=== PATIENT | female | born 1950 | race Hispanic/Latino ===

== ENCOUNTER 2019-02-28 04:46 | Observation (INO) | payer OTHER ==
--- OUTSIDE RECORDS SUMMARY | 2019-02-28 04:57 | XMS REPORT ---
:1950 [facility] Address [address] [place] [address] Care Team Providers Name Role Phone Unavailable Unavailable Unavailable Payers Payer Name Policy Type Policy Number Effective Date Expiration Date Problems This patient has no known problems. Allergies, Adverse Reactions, Alerts Allergy Allergy Status Severity Reaction(s) Onset Inactive Treating Comments Name Type Date Date Clinician No Known DA Active U 2018-11 Allergies -15 00:00:0 0 No Known DA Active U 2018-11 Allergies -05 00:00:0 0 Medications This patient has no known medications. Results Test Description Test Time Test Comments Text Results Atomic Results Result Comments GLUCOSE BEDSIDE TESTING 2018-11-30 08:08:00 Test Item Value Reference Range Comments GLUCOSE BEDSIDE TESTING (test code=GLUBED) 96 MG/DL 60-99 BASIC METABOLIC [id number] 04:53:00 Test Item Value Reference Range Comments SODIUM (test code=NA) 126 MMOL/L 137-145 POTASSIUM (test code=K) 4.0 MMOL/L 3.5-5.1 CHLORIDE (test code=CL) 92 MMOL/L 98-107 CARBON DIOXIDE (test code=CO2) 23 MMOL/L 22-30 GLUCOSE (test code=GLU) 109 MG/DL 74-106 BLOOD UREA NITROGEN (test 13 MG/DL 7-17 code=BUN) GLOMERULAR FILTRATION RATE > 60 Reporting units: ml/min/1.73 (test code=GFR) m2 (Modified MDRD Formula)Reference Range: > or=60 ml/min/1.73 m2 CREATININE (test code=CREAT) 0.60 MG/DL 0.52-1.04 CALCIUM (test code=CA) 8.3 MG/DL 8.4-10.2 GLUCOSE BEDSIDE [id number] 00:48:00 Test Item Value Reference Range Comments GLUCOSE BEDSIDE TESTING (test code=GLUBED) 96 MG/DL 60-99 BASIC METABOLIC [id number] 22:08:00 Test Item Value Reference Range Comments SODIUM (test code=NA) 126 MMOL/L 137-145 POTASSIUM (test code=K) 4.1 MMOL/L 3.5-5.1 CHLORIDE (test code=CL) 88 MMOL/L 98-107 CARBON DIOXIDE (test code=CO2) 26 MMOL/L 22-30 GLUCOSE (test code=GLU) 99 MG/DL 74-106 BLOOD UREA NITROGEN (test 13 MG/DL 7-17 code=BUN) GLOMERULAR FILTRATION RATE > 60 Reporting units: ml/min/1.73 (test code=GFR) m2 (Modified MDRD Formula)Reference Range: > or=60 ml/min/1.73 m2 CREATININE (test code=CREAT) 0.60 MG/DL 0.52-1.04 CALCIUM (test code=CA) 8.7 MG/DL 8.4-10.2 GLUCOSE BEDSIDE [id number] 20:58:00 Test Item Value Reference Range Comments GLUCOSE BEDSIDE TESTING (test code=GLUBED) 85 MG/DL 60-99 BASIC METABOLIC [id number] 15:26:00 Test Item Value Reference Range Comments SODIUM (test code=NA) 126 MMOL/L 137-145 POTASSIUM (test code=K) 4.6 MMOL/L 3.5-5.1 CHLORIDE (test code=CL) 87 MMOL/L 98-107 CARBON DIOXIDE (test code=CO2) 27 MMOL/L 22-30 ANION GAP (test code=GAP) 17 MMOL/L 14-24 GLUCOSE (test code=GLU) 95 MG/DL 74-106 BLOOD UREA NITROGEN (test 12 MG/DL 7-17 code=BUN) GLOMERULAR FILTRATION RATE > 60 Reporting units: ml/min/1.73 (test code=GFR) m2 (Modified MDRD Formula)Reference Range: > or=60 ml/min/1.73 m2 CREATININE (test code=CREAT) 0.70 MG/DL 0.52-1.04 CALCIUM (test code=CA) 9.1 MG/DL 8.4-10.2 Specimen comments: peripheral stickBASIC METABOLIC [id number] 12:56:00 Test Item Value Reference Range Comments SODIUM (test code=NA) 125 MMOL/L 137-145 POTASSIUM (test code=K) 4.2 MMOL/L 3.5-5.1 CHLORIDE (test code=CL) 87 MMOL/L 98-107 CARBON DIOXIDE (test code=CO2) 25 MMOL/L 22-30 GLUCOSE (test code=GLU) 96 MG/DL 74-106 BLOOD UREA NITROGEN (test 12 MG/DL 7-17 code=BUN) GLOMERULAR FILTRATION RATE > 60 Reporting units: ml/min/1.73 (test code=GFR) m2 (Modified MDRD Formula)Reference Range: > or=60 ml/min/1.73 m2 CREATININE (test code=CREAT) 0.70 MG/DL 0.52-1.04 CALCIUM (test code=CA) 8.7 MG/DL 8.4-10.2 CBC W/AUTO [id number] 12:33:00 Test Item Value Reference Range Comments WHITE BLOOD CELL (test code=WBC) 10.4 K/MM3 3.8-9.8 RED BLOOD CELL (test code=RBC) 3.31 M/MM3 3.58-4.97 HEMOGLOBIN (test code=HGB) 9.6 G/DL 11.2-14.9 HEMATOCRIT (test code=HCT) 28.2 % 33.2-43.5 MEAN CELL VOLUME (test code=MCV) 85 fL 80.7-99.1 MEAN CELL HGB (test code=MCH) 29.0 pg 27.0-34.1 MEAN CELL HGB CONCETRATION (test code=MCHC) 34.0 % 32.2-35.7 RED CELL DISTRIBUTION WIDTH (test code=RDW) 14.0 % 12.1-15.2 PLATELET COUNT (test code=PLT) 267 K/MM3 129-368 MEAN PLATELET VOLUME (test code=MPV) 10.9 fl 7.4-10.4 NEUTROPHIL % (test code=NT%) 74.4 % 43-75 IMMATURE GRANULOCYTE % (test code=IG%) 0.4 % 0.0-2.0 LYMPHOCYTE % (test code=LY%) 12.4 % 14-44 MONOCYTE % (test code=MO%) 10.9 % 4-13 EOSINOPHIL % (test code=EO%) 1.3 % 0-6 BASOPHIL % (test code=BA%) 0.6 % 0-2 NUCLEATED RBC % (test code=NRBC%) 0.0 % 0-1.0 NEUTROPHIL # (test code=NT#) 7.76 K/mm3 2.0-7.6 IMMATURE GRANULOCYTE # (test code=IG#) 0.04 x10 3/uL 0-0.03 LYMPHOCYTE # (test code=LY#) 1.29 K/mm3 1.0-3.8 MONOCYTE # (test code=MO#) 1.14 K/mm3 0.1-0.8 EOSINOPHIL # (test code=EO#) 0.14 K/mm3 0.0-0.2 BASOPHIL # (test code=BA#) 0.06 K/mm3 0.0-0.2 NUCLEATED RBC # (test code=NRBC#) 0.00 K/mm3 0.0-0.1 GLUCOSE BEDSIDE [id number] 08:18:00 Test Item Value Reference Range Comments GLUCOSE BEDSIDE TESTING (test code=GLUBED) 62 MG/DL 60-99 GLYCOSYLATED HEMOGLOBIN [id number] 07:54:00 Test Item Value Reference Range Comments GLYCOSYLATED HEMOGLOBIN 5.6 % 4.8-5.9 Any condition that shortens (HA1C) (test code=GLYHGB) erythocyte survival or decreasesmean erythrocyte age (e.g., recovery from acute blood loss,hemolytic anemia) will falsely lower HGBA1c resultsregardless of the method used. HGBA1c results from patientswith HbSS, HbCC, and HbSc must be interpreted with cautiongiven the pathological processes, including anemia,increased red cell turnover, transfusion requirements, thatadversely impact HGBA1c as a marker of long-term glycemiccontrol. Alternative forms of testing such as fructosamineshould be considered for these patients. MEAN BLOOD GLUCOSE (test 114 MG/DL 70-110 code=MBG) GLUCOSE BEDSIDE [id number] 20:15:00 Test Item Value Reference Range Comments GLUCOSE BEDSIDE TESTING (test code=GLUBED) 85 MG/DL 60-99 GLUCOSE BEDSIDE [id number] 17:07:00 Test Item Value Reference Range Comments GLUCOSE BEDSIDE TESTING (test code=GLUBED) 90 MG/DL 60-99 ARTERY,[id number] 10:10:00 RUN DATE: 11/28/18 [facility] [place] RUN TIME: 1010 Specimen Inquiry RUN USER: INTERFACE PATIENT: ENRIQUE DUMONT LOC: AJ U #: [id number] AGE/SX: 68/F ROOM: [facility] RE11/27/18[facility] DR: Storm Freeman MD : 48 BED: A DIS: STATUS: ADM IN TLOC: SPEC #: [id number]:PICHARDO:[id number] RECD: 11/27/18 STATUS: CAS SPARKS #: [id number] VARGHESE: 11/27/[address]: Storm Freeman MD ENTERED: 11/27/18 SP TYPE: ARTERY, PL OTHR DR: Christen Childs MD, Gregory S MDORDERED: DECAL, SURG PATH LVL 3, SURG PATH LVL 4 CODES: T44784 - PLAQUE, NOS M78674 - ARTERY, NOS P07302 [id number] - CAROTID ARTERY ATHEROSCLEROSIS [id number] [id number] - CERVIX EXCISIONAL BIOP RE6876 - LYMPH NODE, NOS COPIES TO:[place] [address] [place] [address] [place] [address] [facility] [address] [place] [address] [place] [address] [facility] [address] [place], [place] [address] ICD CODES: 440 - PROCEDURES: DECAL (11/27/18) SURG PATH LVL 3 (11/27/18) SURG PATH LVL 4 (11/27/18) TISSUES: A. ARTERY, NOS - RT CAROTID PLAQUE B. LYMPH NODE, NOS - RT CERVICAL LYMPH NODE CLINICAL HISTORY RIGHT INTERNAL CAROTID STENOSIS CONTINUED ON NEXT PAGE RUN DATE: 11/28/18 [facility] [place] RUN TIME: 1010 Specimen Inquiry RUN USER: INTERFACE SPEC #: [id number]: PICHARDO:[id number] PATIENT: ENRIQUE DUMONT #[id number] (Continued) - CPT CODES CPT CODE(S): 77739 , 45244 , 40365 , , , , FINAL DIAGNOSIS A. Plaque, right carotid artery, endarterectomy: OCCLUSIVE AND CALCIFIC ATHEROSCLEROSIS. B. Lymph node, right cervical, excisional biopsy: MILD TO MODERATE, NON-SPECIFIC, REACTIVE CHANGE. GROSS DESCRIPTION A. Right carotid plaque. Received is a Y-shaped segment of plaque (3.5 x 1 x 1 cm). Cut sections reveal a calcified surface. Sections are submitted for brief decalcification as A1. B. Right cervical lymph node. Received is a single red-pink lymph node (2.3 x 1.6 x 1 cm), serially sectionedand submitted as B1. /tc/federico MICROSCOPIC DESCRIPTION A. Right carotid plaque. Ovoid sclerotic nodule with partial recanalization and focal dystrophic calcification. No atypia. No malignancy. B. Right cervical lymph node. Benign lymphoid tissue with mild to moderate follicular hyperplasia and sinus histiocytosis. No atypia. No malignancy. /cm - Signed SIGNATURE ON FILE Ramses Teixeira 11/28/18 1010 - END OF REPORT - XR CHEST [id number] 07:38:00 Patient Name: ENRIQUE DUMONT Unit No: [id number] EXAMS: CPT CODE: [id number] XR CHEST 1V 75571 R16 EXAM: - XR CHEST 1V HISTORY: post op COMPARISON: 11/27/2018 FINDINGS: Right internal jugular catheter and left subclavian central line again noted. The lungs are clear. No pleural effusion or pneumothorax. The cardiac silhouette is within normal limits. No acute osseous abnormalities. IMPRESSION: No acute cardiopulmonary disease. at 0738 Reported and signed by: Holden Trujillo MD CC: Technologist: RT Noel(R) Transcrpt Date/Tm/Trnsp: 11/28/2018 (0738) [email or web address] Orig Print D/T: S: 11/28/2018 (0741) [facility] NAME: ENRIQUE DUMONT [address] PHYS : [place] [address] : 07/1950 AGE: 68 SEX: F LOC : Z.SI04 A PHONE #: [phone] EXAM DATE: 11/28/2018 STATUS: ADM IN FAX #: [phone] RADIOLOGY NO: PAGE 1 Signed ReportBASIC METABOLIC [id number] 04:37:00 Test Item Value Reference Range Comments SODIUM (test code=NA) 132 MMOL/L 137-145 POTASSIUM (test code=K) 4.4 MMOL/L 3.5-5.1 CHLORIDE (test code=CL) 100 MMOL/L 98-107 CARBON DIOXIDE (test code=CO2) 24 MMOL/L 22-30 ANION GAP (test code=GAP) 12 MMOL/L 14-24 GLUCOSE (test code=GLU) 163 MG/DL 74-106 BLOOD UREA NITROGEN (test 10 MG/DL 7-17 code=BUN) GLOMERULAR FILTRATION RATE > 60 Reporting units: ml/min/1.73 (test code=GFR) m2 (Modified MDRD Formula)Reference Range: > or=60 ml/min/1.73 m2 CREATININE (test code=CREAT) 0.50 MG/DL 0.52-1.04 CALCIUM (test code=CA) 8.3 MG/DL 8.4-10.2 [id number] 04:37:00 Test Item Value Reference Range Comments MAGNESIUM (test code=MAG) 1.7 MG/DL 1.6-2.3 CBC W/AUTO [id number] 04:23:00 Test Item Value Reference Range Comments WHITE BLOOD CELL (test code=WBC) 9.4 K/MM3 3.8-9.8 RED BLOOD CELL (test code=RBC) 3.15 M/MM3 3.58-4.97 HEMOGLOBIN (test code=HGB) 9.3 G/DL 11.2-14.9 HEMATOCRIT (test code=HCT) 27.7 % 33.2-43.5 MEAN CELL VOLUME (test code=MCV) 88 fL 80.7-99.1 MEAN CELL HGB (test code=MCH) 29.5 pg 27.0-34.1 MEAN CELL HGB CONCETRATION (test code=MCHC) 33.6 % 32.2-35.7 RED CELL DISTRIBUTION WIDTH (test code=RDW) 14.5 % 12.1-15.2 PLATELET COUNT (test code=PLT) 217 K/MM3 129-368 MEAN PLATELET VOLUME (test code=MPV) 11.1 fl 7.4-10.4 NEUTROPHIL % (test code=NT%) 83.2 % 43-75 IMMATURE GRANULOCYTE % (test code=IG%) 0.3 % 0.0-2.0 LYMPHOCYTE % (test code=LY%) 9.1 % 14-44 MONOCYTE % (test code=MO%) 7.2 % 4-13 EOSINOPHIL % (test code=EO%) 0.0 % 0-6 BASOPHIL % (test code=BA%) 0.2 % 0-2 NUCLEATED RBC % (test code=NRBC%) 0.0 % 0-1.0 NEUTROPHIL # (test code=NT#) 7.85 K/mm3 2.0-7.6 IMMATURE GRANULOCYTE # (test code=IG#) 0.03 x10 3/uL 0-0.03 LYMPHOCYTE # (test code=LY#) 0.86 K/mm3 1.0-3.8 MONOCYTE # (test code=MO#) 0.68 K/mm3 0.1-0.8 EOSINOPHIL # (test code=EO#) 0.00 K/mm3 0.0-0.2 BASOPHIL # (test code=BA#) 0.02 K/mm3 0.0-0.2 NUCLEATED RBC # (test code=NRBC#) 0.00 K/mm3 0.0-0.1 ARTERIAL BLOOD [id number] 12:43:00 Test Item Value Reference Range Comments ARTERIAL BLOOD GAS PH (test 7.36 mmHg 7.35-7.45 code=PHA) ARTERIAL BLOOD GAS PCO2 (test 41.8 mmHg 35.0-45.0 code=PCO2A) ARTERIAL BLOOD GAS PO2 (test 142.2 mmol/L 80.0-100.0 code=PO2A) BICARBONATE TOTAL HCO3 (test 23.2 mmol/L 20.0-26.0 code=HCO3) BASE EXCESS (test code=MIGEL) -2.1 mmol/L -3.0-3.0 ABG O2 SATURATION (test 98.7 % 95.0-100.0 All critical values report code=SATA) to and readback by KAITLYNN CORREA by LEONARD.OS at 11/27/2018 12:06:14 PM ABG L/M (test code=L/M) 5 L/MIN ABG DELIVERY (test code=KHRIS) SMASK ABG TEMPERATURE (test 37.0 C >37 code=TEMPA) ABG SITE (test code=SITEA) AL ALLENS TEST (test code=ALLENS) NA CHECK FIO2 (test code=COHBGFFIO2) 40 % - XR CHEST [id number] 12:33:00 Patient Name: ENRIQUE DUMONT Unit No: [id number] EXAMS: CPT CODE: [id number] XR CHEST 1V 12741 EXAMINATION: - XR CHEST 1V. LOCATION: B2. HISTORY: post op. COMPARISON: Radiograph of same day at 0655 hours. TECHNIQUE:Single AP view of the chest was obtained. FINDINGS: Surgical drain is seen in the right neck. Left subclavian line tip is at the cavoatrial junction. The heartis within the upper limits of normal in size. Calcifications are seen at the aortic arch. Right upper lobe and mild bibasilar opacities are present. No acute osseous abnormality isidentified. IMPRESSION: Right upper lobe and mild bibasilar opacities, likely representing atelectasis. at 1233 Reported and signed by: Tito Garcia MD CC: Technologist: [employer] ; Virgilio Williamson, RT(R) Transcrpt Date/Tm/Trnsp : 11/27/2018 (1233) [email or web address] Orig Print D/T: S: 11/27/2018 ( 1236) [facility] NAME: ENRIQUE DUMONT [address] PHYS: [place] [address] : 1950 AGE : 68 SEX: F LOC : Z.SI04 A PHONE #: [phone] EXAM DATE: 11/27/2018 STATUS : ADM IN FAX #: [phone] RADIOLOGY NO: PAGE 1 Signed ReportBASIC METABOLIC [id number] 12:26:00 Test Item Value Reference Range Comments SODIUM (test code=NA) 139 MMOL/L 137-145 POTASSIUM (test code=K) 3.8 MMOL/L 3.5-5.1 CHLORIDE (test code=CL) 107 MMOL/L 98-107 CARBON DIOXIDE (test code=CO2) 25 MMOL/L 22-30 ANION GAP (test code=GAP) 11 MMOL/L 14-24 GLUCOSE (test code=GLU) 115 MG/DL 74-106 BLOOD UREA NITROGEN (test 12 MG/DL 7-17 code=BUN) GLOMERULAR FILTRATION RATE > 60 Reporting units: ml/min/1.73 (test code=GFR) m2 (Modified MDRD Formula)Reference Range: > or=60 ml/min/1.73 m2 CREATININE (test code=CREAT) 0.60 MG/DL 0.52-1.04 CALCIUM (test code=CA) 8.0 MG/DL 8.4-10.2 [id number] 12:26:00 Test Item Value Reference Range Comments MAGNESIUM (test code=MAG) 1.7 MG/DL 1.6-2.3 CBC W/AUTO [id number] 12:17:00 Test Item Value Reference Range Comments WHITE BLOOD CELL (test code=WBC) 7.8 K/MM3 3.8-9.8 RED BLOOD CELL (test code=RBC) 3.27 M/MM3 3.58-4.97 HEMOGLOBIN (test code=HGB) 9.6 G/DL 11.2-14.9 HEMATOCRIT (test code=HCT) 28.9 % 33.2-43.5 MEAN CELL VOLUME (test code=MCV) 88 fL 80.7-99.1 MEAN CELL HGB (test code=MCH) 29.4 pg 27.0-34.1 MEAN CELL HGB CONCETRATION (test code=MCHC) 33.2 % 32.2-35.7 RED CELL DISTRIBUTION WIDTH (test code=RDW) 14.5 % 12.1-15.2 PLATELET COUNT (test code=PLT) 220 K/MM3 129-368 MEAN PLATELET VOLUME (test code=MPV) 11.2 fl 7.4-10.4 NEUTROPHIL % (test code=NT%) 74.0 % 43-75 IMMATURE GRANULOCYTE % (test code=IG%) 0.4 % 0.0-2.0 LYMPHOCYTE % (test code=LY%) 13.5 % 14-44 MONOCYTE % (test code=MO%) 6.4 % 4-13 EOSINOPHIL % (test code=EO%) 5.1 % 0-6 BASOPHIL % (test code=BA%) 0.6 % 0-2 NUCLEATED RBC % (test code=NRBC%) 0.0 % 0-1.0 NEUTROPHIL # (test code=NT#) 5.79 K/mm3 2.0-7.6 IMMATURE GRANULOCYTE # (test code=IG#) 0.03 x10 3/uL 0-0.03 LYMPHOCYTE # (test code=LY#) 1.06 K/mm3 1.0-3.8 MONOCYTE # (test code=MO#) 0.50 K/mm3 0.1-0.8 EOSINOPHIL # (test code=EO#) 0.40 K/mm3 0.0-0.2 BASOPHIL # (test code=BA#) 0.05 K/mm3 0.0-0.2 NUCLEATED RBC # (test code=NRBC#) 0.00 K/mm3 0.0-0.1 HIV 12 AB [id number] 08:06:00 Test Item Value Reference Range Comments AB HIV 1 2 (test NON REACTIVE NON-REAC NOTE: A NONREACTIVE RESULT code=RSI45DF) INDICATES THAT HIV-1 AND HIV-2ANTIBODIES HAVE NOT BEEN FOUND IN THIS PATIENT SPECIMEN. ANON-REACTIVE RESULT, HOWEVER, DOES NOT PRECLUDE PREVIOUSEXPOSURE OR INFECTION WITH HIV1. AG HIV1 P24 (test NON REACTIVE NONE REAC code=DIG3B29) PROTHROMBIN [id number] 08:01:00 Test Item Value Reference Range Comments PROTHROMBIN TIME PATIENT (test 11.7 SECONDS 9.6-11.6 code=PTP) INTERNATIONAL NORMAL RATIO 1.1 0.8-1.1 The INR is to be used only (test code=INR) for monitoring oral anticoagulanttherapy. INDICATION INR VALUE 1. Prophylaxis, deep venous thrombosis, including high risk surgery. 2.0 - 3.0 2. Prophylaxis, deep venous thrombosis, hip surgery, treatment for deep venous thrombosis or pulmonary prevention of systemic embolism in patients with valvular heart disease, atrial fibrillation, tissue heart valve, or acute myocardial infarction. 2.0 - 3.0 3. Mechanical prosthesis heart valves, recurrent systemic embolism. 3.0 - 4.5 PTT [id number] 08:01:00 Test Item Value Reference Range Comments PTT ACTIVATED (test code=APTT) 32.8 SECONDS 22.0-33.0 BASIC METABOLIC [id number] 07:56:00 Test Item Value Reference Range Comments SODIUM (test code=NA) 139 MMOL/L 137-145 POTASSIUM (test code=K) 4.6 MMOL/L 3.5-5.1 CHLORIDE (test code=CL) 104 MMOL/L 98-107 CARBON DIOXIDE (test code=CO2) 25 MMOL/L 22-30 GLUCOSE (test code=GLU) 97 MG/DL 74-106 BLOOD UREA NITROGEN (test 15 MG/DL 7-17 code=BUN) GLOMERULAR FILTRATION RATE > 60 Reporting units: ml/min/1.73 (test code=GFR) m2 (Modified MDRD Formula)Reference Range: > or=60 ml/min/1.73 m2 CREATININE (test code=CREAT) 0.80 MG/DL 0.52-1.04 CALCIUM (test code=CA) 8.9 MG/DL 8.4-10.2 CBC W/AUTO [id number] 07:45:00 Test Item Value Reference Range Comments WHITE BLOOD CELL (test code=WBC) 9.4 K/MM3 3.8-9.8 RED BLOOD CELL (test code=RBC) 3.83 M/MM3 3.58-4.97 HEMOGLOBIN (test code=HGB) 11.0 G/DL 11.2-14.9 HEMATOCRIT (test code=HCT) 34.0 % 33.2-43.5 MEAN CELL VOLUME (test code=MCV) 89 fL 80.7-99.1 MEAN CELL HGB (test code=MCH) 28.7 pg 27.0-34.1 MEAN CELL HGB CONCETRATION (test code=MCHC) 32.4 % 32.2-35.7 RED CELL DISTRIBUTION WIDTH (test code=RDW) 14.5 % 12.1-15.2 PLATELET COUNT (test code=PLT) 260 K/MM3 129-368 MEAN PLATELET VOLUME (test code=MPV) 11.2 fl 7.4-10.4 NEUTROPHIL % (test code=NT%) 68.2 % 43-75 IMMATURE GRANULOCYTE % (test code=IG%) 0.2 % 0.0-2.0 LYMPHOCYTE % (test code=LY%) 15.6 % 14-44 MONOCYTE % (test code=MO%) 9.9 % 4-13 EOSINOPHIL % (test code=EO%) 5.5 % 0-6 BASOPHIL % (test code=BA%) 0.6 % 0-2 NUCLEATED RBC % (test code=NRBC%) 0.0 % 0-1.0 NEUTROPHIL # (test code=NT#) 6.43 K/mm3 2.0-7.6 IMMATURE GRANULOCYTE # (test code=IG#) 0.02 x10 3/uL 0-0.03 LYMPHOCYTE # (test code=LY#) 1.47 K/mm3 1.0-3.8 MONOCYTE # (test code=MO#) 0.93 K/mm3 0.1-0.8 EOSINOPHIL # (test code=EO#) 0.52 K/mm3 0.0-0.2 BASOPHIL # (test code=BA#) 0.06 K/mm3 0.0-0.2 NUCLEATED RBC # (test code=NRBC#) 0.00 K/mm3 0.0-0.1 - XR CHEST [id number] 07:29:00 Patient Name: ENRIQUE DUMONT Unit No: [id number] EXAMS: CPT CODE: [id number] XR CHEST 1V 37459 EXAM: - XR CHEST 1V HISTORY: Preoperative exam Location code:C3 COMPARISON: None available time of interpretation. FINDINGS: Single AP view of the chest is provided. Heart size and vascularity are within normal limits. The lungs are clear of focal consolidation. No effusion, pneumothorax,or acute osseous abnormality. IMPRESSION: 1. No radiographic evidence of acute cardiopulmonary process. at 0729 Reportedand signed by: Ramses Pineda MD CC: Technologist: Lashaun Sherwood (RT); [employer] [facility] Transcrpt Date/Tm/Trnsp:11/27/2018 (07) [id number] Orig Print D /T: S: 11/27/2018 (0732) [facility] NAME: ENRIQUE DUMONT [address] PHYS: [place] [address] : 1950 AGE : 68 SEX: F LOC : Z.LDU PHONE #: [phone] EXAM DATE: 11/27/2018 STATUS: PRE IN FAX #: [phone] RADIOLOGY NO: PAGE 1 Signed ReportBASIC METABOLIC [id number] 06:55:00 Test Item Value Reference Range Comments SODIUM (test code=NA) 140 MMOL/L 137-145 POTASSIUM (test code=K) 4.3 MMOL/L 3.5-5.1 CHLORIDE (test code=CL) 109 MMOL/L 98-107 CARBON DIOXIDE (test code=CO2) 23 MMOL/L 22-30 GLUCOSE (test code=GLU) 112 MG/DL 74-106 BLOOD UREA NITROGEN (test 14 MG/DL 7-17 code=BUN) GLOMERULAR FILTRATION RATE > 60 Reporting units: ml/min/1.73 (test code=GFR) m2 (Modified MDRD Formula)Reference Range: > or=60 ml/min/1.73 m2 CREATININE (test code=CREAT) 0.70 MG/DL 0.52-1.04 CALCIUM (test code=CA) 8.3 MG/DL 8.4-10.2 CBC W/AUTO [id number] 06:44:00 Test Item Value Reference Range Comments WHITE BLOOD CELL (test code=WBC) 6.4 K/MM3 3.8-9.8 RED BLOOD CELL (test code=RBC) 3.79 M/MM3 3.58-4.97 HEMOGLOBIN (test code=HGB) 10.9 G/DL 11.2-14.9 HEMATOCRIT (test code=HCT) 34.1 % 33.2-43.5 MEAN CELL VOLUME (test code=MCV) 90 fL 80.7-99.1 MEAN CELL HGB (test code=MCH) 28.8 pg 27.0-34.1 MEAN CELL HGB CONCETRATION (test code=MCHC) 32.0 % 32.2-35.7 RED CELL DISTRIBUTION WIDTH (test code=RDW) 14.5 % 12.1-15.2 PLATELET COUNT (test code=PLT) 228 K/MM3 129-368 MEAN PLATELET VOLUME (test code=MPV) 11.1 fl 7.4-10.4 NEUTROPHIL % (test code=NT%) 68.2 % 43-75 IMMATURE GRANULOCYTE % (test code=IG%) 0.3 % 0.0-2.0 LYMPHOCYTE % (test code=LY%) 17.0 % 14-44 MONOCYTE % (test code=MO%) 9.9 % 4-13 EOSINOPHIL % (test code=EO%) 3.8 % 0-6 BASOPHIL % (test code=BA%) 0.8 % 0-2 NUCLEATED RBC % (test code=NRBC%) 0.0 % 0-1.0 NEUTROPHIL # (test code=NT#) 4.33 K/mm3 2.0-7.6 IMMATURE GRANULOCYTE # (test code=IG#) 0.02 x10 3/uL 0-0.03 LYMPHOCYTE # (test code=LY#) 1.08 K/mm3 1.0-3.8 MONOCYTE # (test code=MO#) 0.63 K/mm3 0.1-0.8 EOSINOPHIL # (test code=EO#) 0.24 K/mm3 0.0-0.2 BASOPHIL # (test code=BA#) 0.05 K/mm3 0.0-0.2 NUCLEATED RBC # (test code=NRBC#) 0.00 K/mm3 0.0-0.1 [id number] 08:43:00 Test Item Value Reference Range Comments ACT-ISTAT (test code=ACTI) 279 SEC 74-137 BASIC METABOLIC [id number] 06:07:00 Test Item Value Reference Range Comments SODIUM (test code=NA) 141 MMOL/L 137-145 POTASSIUM (test code=K) 4.3 MMOL/L 3.5-5.1 CHLORIDE (test code=CL) 104 MMOL/L 98-107 CARBON DIOXIDE (test code=CO2) 27 MMOL/L 22-30 GLUCOSE (test code=GLU) 100 MG/DL 74-106 BLOOD UREA NITROGEN (test 15 MG/DL 7-17 code=BUN) GLOMERULAR FILTRATION RATE > 60 Reporting units: ml/min/1.73 (test code=GFR) m2 (Modified MDRD Formula)Reference Range: > or=60 ml/min/1.73 m2 CREATININE (test code=CREAT) 0.70 MG/DL 0.52-1.04 CALCIUM (test code=CA) 9.3 MG/DL 8.4-10.2 LIPID PROFILE (CORONARY RISK)2018-11-17 06:07:00 Test Item Value Reference Range Comments TRIGLYCERIDES (test code=TRIG) 115 MG/DL TRIGLYCERIDES REFERENCE RANGE:Normal: <150 mg/dLBorderline High: 150-199 mg/dLHigh: 200-499 mg/dLVery High: >=500 mg/dL CHOLESTEROL (test code=CHOL) 98 MG/DL <200 HDL CHOLESTEROL (test 27 MG/DL 40-59 code=HDL) LIPOPROTEIN LDL (test 48 MG/DL 0-99 code=LDL) OPTIMAL.........<100 mg/dLNEAR OPTIMAL/ABOVE OPTIMAL.........100-129 mg/dL BORDERLINE HIGH.........130-159 mg/dL HIGH.........160-189 mg/dL VERY HIGH.........>/=190 mg/dL [id number] 06:07:00 Test Item Value Reference Range Comments MAGNESIUM (test code=MAG) 2.1 MG/DL 1.6-2.3 PROTHROMBIN [id number] 05:59:00 Test Item Value Reference Range Comments PROTHROMBIN TIME PATIENT (test 11.2 SECONDS 9.6-11.6 code=PTP) INTERNATIONAL NORMAL RATIO 1.1 0.8-1.1 The INR is to be used only (test code=INR) for monitoring oral anticoagulanttherapy. INDICATION INR VALUE 1. Prophylaxis, deep venous thrombosis, including high risk surgery. 2.0 - 3.0 2. Prophylaxis, deep venous thrombosis, hip surgery, treatment for deep venous thrombosis or pulmonary prevention of systemic embolism in patients with valvular heart disease, atrial fibrillation, tissue heart valve, or acute myocardial infarction. 2.0 - 3.0 3. Mechanical prosthesis heart valves, recurrent systemic embolism. 3.0 - 4.5 Comments to Computational Physicist: WILL BRING TO LABPTT [id number] 05:59:00 Test Item Value Reference Range Comments PTT ACTIVATED (test code=APTT) 30.8 SECONDS 22.0-33.0 Comments to Computational Physicist: WILL BRING TO LABBASIC METABOLIC [id number] 05:56 :00 Test Item Value Reference Range Comments SODIUM (test code=NA) 141 MMOL/L 137-145 POTASSIUM (test code=K) 4.3 MMOL/L 3.5-5.1 CHLORIDE (test code=CL) 104 MMOL/L 98-107 CARBON DIOXIDE (test code=CO2) 27 MMOL/L 22-30 GLUCOSE (test code=GLU) 100 MG/DL 74-106 BLOOD UREA NITROGEN (test 15 MG/DL 7-17 code=BUN) GLOMERULAR FILTRATION RATE > 60 Reporting units: ml/min/1.73 (test code=GFR) m2 (Modified MDRD Formula)Reference Range: > or=60 ml/min/1.73 m2 CREATININE (test code=CREAT) 0.70 MG/DL 0.52-1.04 CALCIUM (test code=CA) 9.3 MG/DL 8.4-10.2 LIPID PROFILE (CORONARY RISK)2018-11-17 05:56:00 Test Item Value Reference Range Comments TRIGLYCERIDES (test code=TRIG) 115 MG/DL TRIGLYCERIDES REFERENCE RANGE:Normal: <150 mg/dLBorderline High: 150-199 mg/dLHigh: 200-499 mg/dLVery High: >=500 mg/dL CHOLESTEROL (test code=CHOL) 98 MG/DL <200 HDL CHOLESTEROL (test 27 MG/DL 40-59 code=HDL) LIPOPROTEIN LDL (test MG/DL 0-99 code=LDL) [id number] 05:56:00 Test Item Value Reference Range Comments MAGNESIUM (test code=MAG) 2.1 MG/DL 1.6-2.3 CBC W/AUTO [id number] 05:43:00 Test Item Value Reference Range Comments WHITE BLOOD CELL (test code=WBC) 8.1 K/MM3 3.8-9.8 RED BLOOD CELL (test code=RBC) 4.28 M/MM3 3.58-4.97 HEMOGLOBIN (test code=HGB) 12.4 G/DL 11.2-14.9 HEMATOCRIT (test code=HCT) 38.5 % 33.2-43.5 MEAN CELL VOLUME (test code=MCV) 90 fL 80.7-99.1 MEAN CELL HGB (test code=MCH) 29.0 pg 27.0-34.1 MEAN CELL HGB CONCETRATION (test code=MCHC) 32.2 % 32.2-35.7 RED CELL DISTRIBUTION WIDTH (test code=RDW) 14.5 % 12.1-15.2 PLATELET COUNT (test code=PLT) 274 K/MM3 129-368 MEAN PLATELET VOLUME (test code=MPV) 11.0 fl 7.4-10.4 NEUTROPHIL % (test code=NT%) 66.1 % 43-75 IMMATURE GRANULOCYTE % (test code=IG%) 0.2 % 0.0-2.0 LYMPHOCYTE % (test code=LY%) 19.4 % 14-44 MONOCYTE % (test code=MO%) 10.2 % 4-13 EOSINOPHIL % (test code=EO%) 3.4 % 0-6 BASOPHIL % (test code=BA%) 0.7 % 0-2 NUCLEATED RBC % (test code=NRBC%) 0.0 % 0-1.0 NEUTROPHIL # (test code=NT#) 5.36 K/mm3 2.0-7.6 IMMATURE GRANULOCYTE # (test code=IG#) 0.02 x10 3/uL 0-0.03 LYMPHOCYTE # (test code=LY#) 1.58 K/mm3 1.0-3.8 MONOCYTE # (test code=MO#) 0.83 K/mm3 0.1-0.8 EOSINOPHIL # (test code=EO#) 0.28 K/mm3 0.0-0.2 BASOPHIL # (test code=BA#) 0.06 K/mm3 0.0-0.2 NUCLEATED RBC # (test code=NRBC#) 0.00 K/mm3 0.0-0.1
[2019-02-28 05:13] LABS: Absolute Lymphocytes (CBC) 1.6 K/uL (0.7-4.9); Basophils % 0.9 % (0-1.3); Eosinophils % 3.5 % (0-4.4); Hematocrit 31.2 % (36.0-45.0); Lymphocytes % 24.7 % (15.3-44.8); MPV 9.7 fL (7.6-11.3); Monocytes % 9.1 % (3.3-12.3); RBC Red Blood Cell Count 3.79 M/uL (3.86-4.86)
[2019-02-28 05:14] LABS: Protime INR 1.11
[2019-02-28 05:31] LABS: ALT/SGPT 24 U/L (12-78); AST/SGOT 23 U/L (15-37); Albumin 3.8 g/dL (3.4-5.0); Alkaline Phosphatase 159 U/L (45-117); BUN Blood Urea Nitrogen 32 mg/dL (7-18); Bicarbonate 27 mmol/L (21-32); Bilirubin Direct 0.1 mg/dL (0-0.2); Bilirubin Total 0.4 mg/dL (0.2-1.0); Glucose Level 113 mg/dL (74-106); Magnesium 2.7 mg/dL (1.8-2.4); NT PRO-BNP 40 pg/mL (<125); Potassium 3.9 mmol/L (3.5-5.1); Protein, Total 7.5 g/dL (6.4-8.2); Sodium Level 142 mmol/L (136-145); Troponin (Emerg Dept Use Only) < 0.02 ng/mL (0.0-0.045)
[2019-02-28] MEDS ORDERED: NA CHLORIDE 0.9% 1,000 ML ONE (05:51)
--- NOTE | 2019-02-28 06:02 | ER ---
Nurse's Notes [facility] Name: Alejandrina Jason Age: 68 yrs Sex: Female : 1950 Arrival Date: 02/28/2019 Time: 04:56 Bed 8 Private MD: Diagnosis: Recurrent syncopal episodes Presentation: 02/28 04:30 Presenting complaint: Co workers reported pt had 3 syncopal episodes, they reported ea episodes were one after another, deny pt hitting head on floor. Transition of care: patient was not received from another setting of care. Onset of symptoms was February 28, 2019. Risk Assessment: Do you want to hurt yourself or someone else? Patient reports no desire to harm self or others. Initial Sepsis Screen: Does the patient meet any 2 criteria? No. Patient's initial sepsis screen is negative. Does the patient have a suspected source of infection? No. Patient's initial sepsis screen is negative. Care prior to arrival: None. 04:30 Method Of Arrival: Wheelchair ea 04:30 Acuity: DON 3 ea Triage Assessment: 04:30 General: Appears uncomfortable, Behavior is drowsy. Pain: Denies pain. Neuro: Level of ea Consciousness is obeys commands, Drowsy. Oriented to person, place, Art Instructor are equal bilaterally Moves all extremities. Speech is normal, Facial symmetry appears normal, Reports a syncopal episode. Cardiovascular: Patient's skin is warm and dry. Respiratory: Airway is patent Respiratory effort is even, unlabored, Respiratory pattern is regular, symmetrical. Derm: Skin is clammy, Skin is pale, Skin temperature is warm. Historical: - Allergies: 05:13 No Known Allergies; ea - Home Meds: 05:13 "blood thinner" [Active]; "high blood pressure medication" [Active]; ea - PMHx: 05:13 Hypertension; ea - PSHx: 05:13 "stents"; ea - Immunization history:: Adult Immunizations up to date. - Social history:: Smoking status: Patient/guardian denies using tobacco. - Ebola Screening: : No symptoms or risks identified at this time. Screenin:06 Abuse screen: Denies threats or abuse. Nutritional screening: No deficits noted. ea Tuberculosis screening: No symptoms or risk factors identified. Fall Risk IV access (20 points). Assessment: 05:11 Neuro: Level of Consciousness is awake, Oriented to person, place, situation. ea Cardiovascular: Rhythm is sinus rhythm. Respiratory: Airway is patent Respiratory effort is even, unlabored, Respiratory pattern is regular, symmetrical. Derm: Skin is clammy, Skin is pale, Skin temperature is warm. 05:51 Reassessment: Patient and/or family updated on plan of care and expected duration. Pain ea level reassessed. Patient is alert, oriented x 3, equal unlabored respirations, skin warm/dry/pink. Returned from CT. Pt is more awake, able to answer questions appropriately. 06:29 Reassessment: Patient and/or family updated on plan of care and expected duration. Pain ea level reassessed. Patient is alert, oriented x 3, equal unlabored respirations, skin warm/dry/pink. 07:10 General: Appears comfortable. Pain: Denies pain. Neuro: Level of Consciousness is aa5 awake, alert, obeys commands, Oriented to person, place, time, situation, Art Instructor are equal bilaterally Moves all extremities. Speech is normal, Facial symmetry appears normal, Pupils are PERRLA. Cardiovascular: Heart tones S1 S2 present Rhythm is regular. Respiratory: Airway is patent Respiratory effort is even, unlabored, Respiratory pattern is regular, symmetrical, Breath sounds are clear bilaterally. GI: No signs and/or symptoms were reported involving the gastrointestinal system. : No signs and/or symptoms were reported regarding the genitourinary system. EENT: No signs and/or symptoms were reported regarding the EENT system. Derm: Skin is pink, warm \\T\\ dry. Musculoskeletal: Range of motion: intact in all extremities. 07:12 Reassessment: Awaiting room assignment, pt notified of wait time. Lights dimmed for aa5 comfort, pt now resting with eyes closed. . 08:30 Reassessment: Patient is alert, oriented x 3, equal unlabored respirations, skin aa5 warm/dry/pink. Vital Signs: 04:32 BP 135 / 53; Pulse 64; Resp 19; Temp 97.6; Pulse Ox 95% on R/A; Weight 61.23 kg; Height ea 4 ft. 11 in. (149.86 cm); Pain 0/10; 05:00 BP 147 / 61; Pulse 74; Resp 18; Pulse Ox 97% on R/A; ea 06:03 BP 120 / 47; Pulse 81; Resp 18; Pulse Ox 100% on R/A; ea 07:10 BP 123 / 55; Pulse 66; Resp 18; Pulse Ox 100% on R/A; ea 07:10 Temp 97.7(O); Pain 0/10; aa5 08:30 BP 100 / 76; Pulse 63; Resp 16 S; Pulse Ox 97% on R/A; Pain 0/10; aa5 04:32 Body Mass Index 27.27 (61.23 kg, 149.86 cm) ea ED Course: 04:30 Bed in low position. Call light in reach. Side rails up X2. mortgage processing manager on. Pulse ea ox on. NIBP on. 04:30 Patient placed in an exam room, on a stretcher, on maintenance shop laborer, on pulse oximetry. ea 04:55 Inserted saline lock: 20 gauge in right antecubital area, using aseptic technique. ea Blood collected. 04:56 Patient arrived in ED. am2 04:59 Max Marion MD is Attending Physician. pkl 05:02 Carmelita Graham RN is Primary Nurse. ea 05:05 Arm band placed on right wrist. ea 05:08 Triage completed. ea 05:41 CT completed. Patient tolerated procedure well. Patient moved to CT via stretcher. Patient moved back from CT. 05:44 X-ray completed. Portable x-ray completed in exam room. Patient tolerated procedure kw well. 05:46 XRAY Chest (1 view) In Process Unspecified. EDMS 05:46 CT Head Brain wo Cont In Process Unspecified. EDMS 06:00 Cedric Mejia MD is Hospitalizing Provider. pkl 06:25 No provider procedures requiring assistance completed. Patient admitted, IV remains in ea place. 07:05 Report received from KAITLYNN Mae. aa5 Administered Medications: 05:45 Drug: NS 0.9% 1000 ml Route: IV; Rate: 125 ml/hr; Site: right antecubital; ea 06:25 Follow up: Response: No adverse reaction; IV Status: Infusion continued upon transfer ea Point of Care Testing: Blood Glucose: 04:40 Blood Glucose: 88 mg/dL; ea Ranges: Outcome: 06:01 Decision to Hospitalize by Provider. pkl 06:25 Instructed on the need for admit. ea 08:34 Admitted to Tele accompanied by tech, via stretcher, with chart, Report called to mary Stapleton RN. Pt taken to MRI at this time with tech. Pt will be taken to Room 424 after MRI, KAITLYNN Stapleton was notified. 08:34 Condition: stable 08:34 Instructed on the need for admit, Demonstrated understanding of instructions. aa5 08:35 Patient left the ED. iw Signatures: Dispatcher [employer] EDMS Max Marion MD MD pkl Hagler, Ervin eh Williams, Irene, RN RN iw Calderon, Audri, RN RN aa5 Whitley, Kimberlee kw Moreno, Amanda am2 Antunez, Elena, RN RN ea Corrections: (The following items were deleted from the chart) 08:41 08:34 Admitted to Tele accompanied by tech, via stretcher, with chart, Report called to mary Stapleton RN. Pt taken to MRI at this time with tech. Pt will be taken to Room 424 after MRI. aa5
--- NOTE | 2019-02-28 06:02 | EDPHYS ---
Physician Documentation [facility] Name: Alejandrina Jason Age: 68 yrs Sex: Female : 1950 Arrival Date: 02/28/2019 Time: 04:56 Bed 8 Private MD: ED Physician Max Marion HPI: 02/28 05:02 This 68 yrs old Female presents to ER via Unassigned with complaints of pkl Syncope. 05:02 The patient has experienced near-syncope, almost passed out. Onset: The pkl symptoms/episode began/occurred just prior to arrival, Patient had recurrent episodes and had to be assisted by co-workers. Associated signs and symptoms: Pertinent positives: diaphoresis, headache. Historical: - Allergies: 05:13 No Known Allergies; ea - Home Meds: 05:13 "blood thinner" [Active]; "high blood pressure medication" [Active]; ea - PMHx: 05:13 Hypertension; ea - PSHx: 05:13 "stents"; ea - Immunization history:: Adult Immunizations up to date. - Social history:: Smoking status: Patient/guardian denies using tobacco. - Ebola Screening: : No symptoms or risks identified at this time. ROS: 05:02 Eyes: Negative for injury, pain, redness, and discharge, ENT: Negative for injury, pkl pain, and discharge, Neck: Negative for injury, pain, and swelling, Cardiovascular: Negative for chest pain, palpitations, and edema, Respiratory: Negative for shortness of breath, cough, wheezing, and pleuritic chest pain, Abdomen/GI: Negative for abdominal pain, nausea, vomiting, diarrhea, and constipation, Back: Negative for injury and pain, : Negative for injury, bleeding, discharge, and swelling, MS/Extremity: Negative for injury and deformity, Skin: Negative for injury, rash, and discoloration. 05:02 Neuro: Positive for headache, near syncope. Exam: 05:02 Abdomen/GI: Exam negative for acute changes. pkl 05:02 Head/Face: Normocephalic, atraumatic. Eyes: Pupils equal round and reactive to light, extra-ocular motions intact. Lids and lashes normal. Conjunctiva and sclera are non-icteric and not injected. Cornea within normal limits. Periorbital areas with no swelling, redness, or edema. ENT: Nares patent. No nasal discharge, no septal abnormalities noted. Tympanic membranes are normal and external auditory canals are clear. Oropharynx with no redness, swelling, or masses, exudates, or evidence of obstruction, uvula midline. Mucous membranes moist. Neck: Trachea midline, no thyromegaly or masses palpated, and no cervical lymphadenopathy. Supple, full range of motion without nuchal rigidity, or vertebral point tenderness. No Meningismus. Chest/axilla: Normal chest wall appearance and motion. Nontender with no deformity. No lesions are appreciated. Cardiovascular: Regular rate and rhythm with a normal S1 and S2. No gallops, murmurs, or rubs. Normal PMI, no JVD. No pulse deficits. Respiratory: Lungs have equal breath sounds bilaterally, clear to auscultation and percussion. No rales, rhonchi or wheezes noted. No increased work of breathing, no retractions or nasal flaring. Abdomen/GI: Soft, non-tender, with normal bowel sounds. No distension or tympany. No guarding or rebound. No evidence of tenderness throughout. Back: No spinal tenderness. No costovertebral tenderness. Full range of motion. 05:02 Skin: Appearance: diaphoresis is noted. 05:02 Neuro: Orientation: appropriate for stated age, Mentation: is normal, Cranial nerves: grossly normal, Cerebellar function: normal finger to nose testing, heel to bolden testing is normal, Motor: is normal. Vital Signs: 04:32 BP 135 / 53; Pulse 64; Resp 19; Temp 97.6; Pulse Ox 95% on R/A; Weight 61.23 kg; Height ea 4 ft. 11 in. (149.86 cm); Pain 0/10; 05:00 BP 147 / 61; Pulse 74; Resp 18; Pulse Ox 97% on R/A; ea 06:03 BP 120 / 47; Pulse 81; Resp 18; Pulse Ox 100% on R/A; ea 07:10 BP 123 / 55; Pulse 66; Resp 18; Pulse Ox 100% on R/A; ea 07:10 Temp 97.7(O); Pain 0/10; aa5 08:30 BP 100 / 76; Pulse 63; Resp 16 S; Pulse Ox 97% on R/A; Pain 0/10; aa5 04:32 Body Mass Index 27.27 (61.23 kg, 149.86 cm) ea MDM: 04:59 Patient medically screened. pkl 05:49 Data reviewed: vital signs, nurses notes, lab test result(s), EKG, radiologic studies, pkl CT scan, plain films. 05:58 Data reviewed: vital signs, nurses notes, lab test result(s), EKG, radiologic studies, pkl CT scan, plain films. ED course: Talked to Dr. Mejia for observation. 02/28 05:01 Order name: Basic Metabolic Panel pkl 02/28 05:01 Order name: CBC with Diff pkl 02/28 05:01 Order name: LFT's pkl 02/28 05:01 Order name: Magnesium; Complete Time: 05:48 pkl 02/28 05:01 Order name: NT PRO-BNP; Complete Time: 05:48 pkl 02/28 05:01 Order name: PT-INR; Complete Time: 05:48 pkl 02/28 05:01 Order name: Troponin (emerg Dept Use Only); Complete Time: 05:48 pkl 02/28 05:01 Order name: XRAY Chest (1 view) pkl 02/28 05:01 Order name: Basic Metabolic Panel; Complete Time: 05:48 EDMS 02/28 05:02 Order name: CBC with Automated Diff; Complete Time: 05:48 EDMS 02/28 05:02 Order name: Liver (Hepatic) Function; Complete Time: 05:48 EDMS 02/28 07:27 Order name: Lipid Profile EDMS 02/28 07:27 Order name: Troponin I EDDC 02/28 07:27 Order name: Troponin I EDDC 02/28 05:01 Order name: EKG; Complete Time: 05:02 pkl 02/28 05:01 Order name: Cardiac monitoring; Complete Time: 05:10 pkl 02/28 05:01 Order name: EKG - Nurse/Tech; Complete Time: 05:10 pkl 02/28 05:01 Order name: IV Saline Lock; Complete Time: 05:10 pkl 02/28 05:01 Order name: Labs collected and sent; Complete Time: 05:10 pkl 02/28 05:01 Order name: O2 Per Protocol; Complete Time: 05:10 pkl 02/28 05:01 Order name: O2 Sat Monitoring; Complete Time: 05:10 pkl 02/28 05:01 Order name: CT Head Brain wo Cont pkl 02/28 07:27 Order name: Heart Healthy EDMS 02/28 07:27 Order name: Echo with Doppler EDMS 02/28 07:28 Order name: Carotid Artery Bilateral EDMS 02/28 07:53 Order name: MRA Head Wo Cont EDMS 02/28 07:55 Order name: Brain W/Wo Cont EDMS 02/28 07:55 Order name: MRA Neck W/Wo Cont EDMS Administered Medications: 05:45 Drug: NS 0.9% 1000 ml Route: IV; Rate: 125 ml/hr; Site: right antecubital; ea 06:25 Follow up: Response: No adverse reaction; IV Status: Infusion continued upon transfer ea Point of Care Testing: Blood Glucose: 04:40 Blood Glucose: 88 mg/dL; ea Ranges: Critical Glucose Levels:Adult <50 mg/dl or >400 mg/dl <40 mg/dl or >180 mg/dl Disposition: 02/28/19 06:01 Hospitalization ordered by Cedric Mejia for Observation. Preliminary diagnosis is Recurrent syncopal episodes. - Bed requested for Telemetry/MedSurg (observation). - Status is Observation. iw - Condition is Stable. - Problem is new. - Symptoms have improved. UTI on Admission? No Signatures: Dispatcher [employer] [facility] Max Marion MD MD pkl Williams, Irene RN RN Carmelita Lucas RN RN Marie Salmon Corrections: (The following items were deleted from the chart) 06:38 06:01 Hospitalization Ordered by Cedric Mejia MD for Observation. Preliminary eb diagnosis is Recurrent syncopal episodes. Bed requested for Telemetry/MedSurg (observation). Status is Observation. Condition is Stable. Problem is new. Symptoms have improved. UTI on Admission? No. pkl 07:48 06:38 02/28/2019 06:01 Hospitalization Ordered by Cedric Mejia MD for Observation. eb Preliminary diagnosis is Recurrent syncopal episodes. Bed requested for Telemetry/MedSurg (observation). Status is Observation. Condition is Stable. Problem is new. Symptoms have improved. UTI on Admission? No. eb 07:53 07:28 Stroke Protocol ordered. [facility] 08:35 07:48 02/28/2019 06:01 Hospitalization Ordered by Cedric Mejia MD for Observation. iw Preliminary diagnosis is Recurrent syncopal episodes. Bed requested for Telemetry/MedSurg (observation). Status is Observation. Condition is Stable. Problem is new. Symptoms have improved. UTI on Admission? No. eb
[2019-02-28] MEDS ORDERED: ALPRAZOLAM 0.25 MG TABLET PO PRN (07:19)
[2019-02-28] MEDS ORDERED: ACETAMINOPHEN 500 MG TAB PO PRN (07:19)
[2019-02-28] MEDS ORDERED: MORPHINE 4 MG/ML SYR IV PRN (07:19)
--- NOTE | 2019-02-28 07:21 | EKG ---
Test Date: 2019-02-28 Test Time: 04:52:22 Surg Tech: RAGINI MEASUREMENT RESULTS: Intervals: Rate: 71 TN: 158 QRSD: 70 QT: 416 QTc: 452 [place]: P: 7 TN: 158 QRS: 90 T: -20 INTERPRETIVE STATEMENTS: Normal sinus rhythm Rightward axis Abnormal QRS-T angle, consider primary T wave abnormality Abnormal ECG No previous ECG available for comparison Electronically Signed On 02-28-19 07:20:31 CDT by Saravanan Stallings
--- NOTE | 2019-02-28 07:39 | P.HP ---
Certification for Inpatient Patient admitted to: Observation With expected LOS: <2 Midnights Patient will require the following post-hospital care: None Practitioner: I am a practitioner with admitting privileges, knowledge of patient current condition, hospital course, and medical plan of care. 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 She has history of carotid endarterectomy and coronary artery disease. She was on her lunch break when she suddenly got lightheaded. She does not remember anything after that except being in the emergency room. She has had a prior carotid endarterectomy for a right-sided carotid artery that was 95% stenosed. She denies any chest pain. She denies any paresthesias or weakness. She will be admitted to the hospital for further evaluation under observation status. She is at a high risk for arrhythmia as, CVA, and with a new bruit on the left carotid artery my concern is that she may have significant stenosis on the left side as well. Home medications list reviewed: Yes - Past Medical/Surgical History -: Coronary artery disease -: Carotid artery atherosclerosis -: Carotid endarterectomy -: Cardiac catheterization with stent placed - Family History Father Family History: Reviewed- Non-Contributory - Social History Smoking Status: Never smoker Alcohol use: No CD- Drugs: No Review of Systems 10-point ROS is otherwise unremarkable Physical Examination - Vital Signs Temperature: 98 F Blood Pressure: 140/70 Pulse: 88 Respirations: 18 Pulse Ox (%): 96 - Physical Exam General: Alert, In no apparent distress, Oriented x3 HEENT: Atraumatic, PERRLA, Mucous membr. moist/pink, EOMI, Sclerae nonicteric Neck: Supple, 2+ carotid pulse no bruit, No LAD, Bruit Respiratory: Clear to auscultation bilaterally, Normal air movement Cardiovascular: Regular rate/rhythm, Normal S1 S2, No murmurs Gastrointestinal: Normal bowel sounds, Soft and benign, Non-distended, No tenderness Musculoskeletal: No clubbing, No swelling, No tenderness Integumentary: No rashes Neurological: Normal gait, Normal speech, Normal strength at 5/5 x4 extr, Normal tone, Sensation intact, Cranial nerves 3-12 intact, Normal affect Lymphatics: No axilla or inguinal lymphadenopathy - Studies Laboratory Data (last 24 hrs) 02/28/19 04:55: PT 13.0 H, INR 1.11 02/28/19 04:55: WBC 6.6, Hgb 10.1 L, Hct 31.2 L, Plt Count 318 02/28/19 04:55: Sodium 142, Potassium 3.9, BUN 32 H, Creatinine 1.04, Glucose 113 H, Magnesium 2.7 H, Total Bilirubin 0.4, AST 23, ALT 24, Alkaline Phosphatase 159 H Assessment & Plan - Problems (Diagnosis) (1) Syncope Current Visit: Yes Status: Acute (2) History of carotid artery disease Current Visit: Yes Status: Acute (3) History of carotid endarterectomy Current Visit: Yes Status: Acute (4) History of coronary artery disease Current Visit: Yes Status: Acute - Plan Plan: 1. Monitor on telemetry for arrhythmias 2. Echocardiogram and carotid Doppler 3. Patient with left-sided carotid bruit; pending carotid Doppler 4. MRI it was stroke protocol 5. Lipid profile and continue with anti-platelet therapy and statin therapy 6. Cardiology consultation 7. GI and DVT prophylaxis Discharge Plan: Home Plan to discharge in: 48 Hours - Advance Directives Does patient have a Living Will: No Does patient have a Durable POA for Healthcare: No - Code Status/Comfort Care Code Status Assessed: Yes Code Status: Full Code Critical Care: No Time Spent Managing PTS Care (In Minutes): 45
--- NOTE | 2019-02-28 08:18 | RAD REPORT ---
EXAM DESCRIPTION: RAD - Chest Single View - 02/28/2019 5:48 am CLINICAL HISTORY: syncopal episodes Chest pain. COMPARISON: C Spine W Obliques dated 01/31/2018 FINDINGS: Portable technique limits examination quality. Small area of nodularity is seen in the right upper lobe. The lungs are otherwise clear. The heart is upper limit of normal in size. No displaced fractures. IMPRESSION: Small area of nodularity is seen in the right upper lobe. Given the lack comparative [address] radiographs, CT chest would be recommended for followup assessment.
--- NOTE | 2019-02-28 08:56 | RAD REPORT ---
EXAM DESCRIPTION: US - CP - 02/28/2019 8:36 am CLINICAL HISTORY: Syncope Headache, hypertension, drowsiness COMPARISON: No comparisons TECHNIQUE: Real-time sonographic evaluation of both carotid systems was performed. Doppler interroga tion was performed with waveform tracing bilaterally. FINDINGS: Normal high resistance waveforms are noted in both external carotid arteries. The common c arotid arteries and internal carotid arteries show normal low resistance waveforms. Mild hard plaquing is seen in both carotid bulbs. Peak systolic and end diastolic velocity values and the ICA/CCA ratios are in the non-hemodynamically significant range. Antegrade flow seen in the left vertebral artery. The right vertebral artery was not well seen. IMPRESSION: Mild hard plaque both carotid bulbs. No evidence of a hemodynamically significant stenosis.
[2019-02-28] MEDS ORDERED: ASPIRIN EC 81 MG TAB PO SCH (09:00)
[2019-02-28] MEDS ORDERED: ENOXAPARIN 40 MG/0.4 ML SQ SCH ×2 (09:00→17:00)
[2019-02-28] MEDS ORDERED: METOPROLOL TAR 25 MG TAB PO SCH (09:00)
[2019-02-28 10:18] VITALS: BP 153/69
--- NOTE | 2019-02-28 10:29 | RAD REPORT ---
EXAM DESCRIPTION: MRI - Brain W/Wo Cont - 02/28/2019 10:00 am CLINICAL HISTORY: Syncope COMPARISON: February 28, [address] TECHNIQUE: Axial, sagittal, and coronal magnetic images of the brain were obtained. 13 cc MultiHance administered intravenously FINDINGS: Mild signal within periventricular, deep and subcortical white matter may indicate ischemi c changes secondary to small vessel disease. . The ventricles are normal in caliber. Diffusion-weighted/ ADC mapping sequences do not demonstrate evidence of an acute infarction. No abnormal enhancement within the brain is seen. An extra-axial fluid collection is not noted. A right posterior scalp lipoma suspected Fluid within the sinuses/mastoids is not seen IMPRESSION: No acute abnormality is displayed
[2019-02-28 10:33] VITALS: O2SAT 99; BMI 27.2
--- NOTE | 2019-02-28 10:36 | RAD REPORT ---
EXAM DESCRIPTION: MRI - MRA Neck W/Wo Cont - 02/28/2019 10:00 am CLINICAL HISTORY: Syncope COMPARISON: None. TECHNIQUE: Magnetic resonance angiogram of the neck was performed. Thirteen cc MultiHance was admini stered intravenously. 3D MIPS reconstruction performed FINDINGS: There appears to be an approximately 50- 55% stenosis involving the proximal left vertebr al artery. Little flow is seen within the right vertebral artery. Mild plaque is present within the common and internal carotid arteries bilaterally. Moderate plaque is seen within the left external carotid artery. IMPRESSION: Moderate stenosis of the proximal left vertebral artery Little flow within the right vertebral artery. I suspect this is secondary to it being hypoplastic. H owever, a chronic occlusion/dissection can also result in this appearance Mild stenosis internal carotid arteries NASCET criteria used. Mild 0-49% stenosis Moderate 50-69% stenosis Severe 70-99% stenosis
--- NOTE | 2019-02-28 10:42 | RAD REPORT ---
EXAM DESCRIPTION: MRI - MRA Head Wo Cont - 02/28/2019 10:00 am CLINICAL HISTORY: Syncope COMPARISON: None. TECHNIQUE: Magnetic resonance angiogram was performed. 3D MIPS reconstruction performed FINDINGS: Narrowing of the M2 segment left middle cerebral artery Hypoplastic A1 segment right anterior cerebral artery Mild narrowing involving portions of the left anterior cerebral and right posterior cerebral artery i s likely chronic. Remainder of exam unremarkable IMPRESSION: Moderate narrowing M2 segment left middle cerebral artery. Given that no significant abn ormality is seen on the MRI brain on the same date this is more likely to be chronic than acute. This should be correlated clinically
--- NOTE | 2019-02-28 10:57 | RAD REPORT ---
EXAM DESCRIPTION: CT Head Without Intravenous Contrast CLINICAL HISTORY: The patient is 68 years old and is Female; syncopal episodes TECHNIQUE: Axial computed tomography images of the head/brain without intravenous contrast. Sagitt al and coronal reformatted images were created and reviewed. This CT exam was performed using one o r more of the following dose reduction techniques: automated exposure control, adjustment of the mA and/or kV according to patient size, and/or use of iterative reconstruction technique. COMPARISON: No relevant prior studies available. FINDINGS: BRAIN: Bilateral basal ganglia calcifications are present. The kaplan-white matter differe ntiation is preserved . No hemorrhage. No significant white matter disease. No edema. No extra-ax ial fluid collections. VENTRICLES: Unremarkable. No ventriculomegaly. BONES/JOINTS: No acute fracture. SOFT TISSUES: Unremarkable. SINUSES: Unremarkable as visualized. No acute sinusitis. MASTOID AIR CELLS: Unremarkable as visualized. No mastoid effusion. IMPRESSION: No acute intracranial findings. Electronically signed by: Emily Jordan MD 02/28/2019 6:12 AM CDT Due to temporary technical issues with the PACS/Fluency reporting system, reports are being signed by the in house radiologist as a courtesy to ensure prompt reporting. The interpreting radiologist is f ully responsible for the content of the report.
[2019-02-28 12:01] VITALS: TEMP 97
--- NOTE | 2019-02-28 14:33 | ECHO ---
HEIGHT: 4 ft 11 in WEIGHT: 135 lb 0 oz DATE OF STUDY: 02/28/[address]: Cedric Mejia MD 2-DIMENSIONAL: YES M.MODE: YES DOPPLER: YES COLOR FLOW: YES TDS: NO PORTABLE: NO DEFINITY: NO BUBBLE STUDY: NO DIAGNOSIS: SYNCOPE CARDIAC HISTORY: CATHERIZATION: YES SURGERY: NO PROSTHETIC VALVE: NO PACEMAKER: NO MEASUREMENTS (cm) DIASTOLIC (NORMALS) SYSTOLIC (NORMALS) IVSd 1.0 (0.6-1.2) LA Diam 3.5 (1.9-4.0) LVEF 75% LVIDd 4.0 (3.5-5.7) LVIDs 2.3 (2.0-3.5) %FS 43% LVPWd 1.0 (0.6-1.2) Ao Diam 2.4 (2.0-3.7) 2 DIMENSIONAL ASSESSMENT: RIGHT ATRIUM: NORMAL LEFT ATRIUM: NORMAL RIGHT VENTRICLE: NORMAL LEFT VENTRICLE: NORMAL TRICUSPID VALVE: NORMAL MITRAL VALVE: NORMAL PULMONIC VALVE: NORMAL AORTIC VALVE: SCLEROSIS PERICARDIAL EFFUSION: NONE AORTIC ROOT: NORMAL LEFT VENTRICULAR WALL MOTION: NORMAL DOPPLER/COLOR FLOW: NORMAL COMMENTS: NORMAL LEFT VENTRICULAR SIZE AND FUNCTION. AORTIC SCLEROSIS WITH NO STENOSIS. NO EFFUSION. NO WALL MOTION ABNORMALITY. TECHNOLOGIST: Eva BISWAS
--- NOTE | 2019-02-28 16:01 | P.SSS ---
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 She has history of carotid endarterectomy and coronary artery disease. She was on her lunch break when she suddenly got lightheaded. She does not remember anything after that except being in the emergency room. She has had a prior carotid endarterectomy for a right-sided carotid artery that was 95% stenosed. She denies any chest pain. She denies any paresthesias or weakness. She will be admitted to the hospital for further evaluation under observation status. She is at a high risk for arrhythmia as, CVA, and with a new bruit on the left carotid artery my concern is that she may have significant stenosis on the left side as well. Allergies No Known Allergies Allergy (Unverified 02/28/19 07:46) Home medications list reviewed: Yes Home Medications: Aspirin 81 mg PO DAILY 02/28/19 Atorvastatin Calcium [Lipitor] 40 mg PO BEDTIME 02/28/19 Bupropion HCl [Bupropion HCl Sr] 150 mg PO DAILY 02/28/19 Carvedilol [Coreg*] 6.25 mg PO BID 02/28/19 Clopidogrel Bisulfate [Plavix*] 75 mg PO DAILY 02/28/19 Dexlansoprazole [Dexilant] 60 mg PO DAILY 02/28/19 Duloxetine HCl [Cymbalta] 60 mg PO DAILY 02/28/19 Glucosamine/D3/Boswellia Shelby [Glucosamine Complex Tablet] 1 tab PO DAILY 02/28 Losartan Potassium 25 mg PO DAILY 02/28/19 - Past Medical/Surgical History Has patient received pneumonia vaccine in the past: Yes Diabetic: No -: Coronary artery disease -: Carotid artery atherosclerosis -: Carotid endarterectomy -: Cardiac catheterization with stent placed - Social History Smoking Status: Never smoker Alcohol use: No CD- Drugs: No Caffeine use: No Place of Residence: Home Review of Systems 10-point ROS is otherwise unremarkable Physical Examination - Vital Signs Temperature: 97.0 F Blood Pressure: 153/69 Pulse: 60 Respirations: 18 Pulse Ox (%): 99 - Physical Exam General: Alert, In no apparent distress, Oriented x3 HEENT: Atraumatic, PERRLA, Mucous membr. moist/pink, EOMI, Sclerae nonicteric Neck: Supple, 2+ carotid pulse no bruit, No LAD, Without JVD or thyroid abnormality Respiratory: Clear to auscultation bilaterally, Normal air movement Cardiovascular: Regular rate/rhythm, Normal S1 S2 Gastrointestinal: Normal bowel sounds, No tenderness Musculoskeletal: No tenderness Integumentary: No rashes Neurological: Normal gait, Normal speech, Normal strength at 5/5 x4 extr, Normal tone, Normal affect Lymphatics: No axilla or inguinal lymphadenopathy - Studies Laboratory Data (last 24 hrs) 02/28/19 04:55: PT 13.0 H, INR 1.11 02/28/19 04:55: WBC 6.6, Hgb 10.1 L, Hct 31.2 L, Plt Count 318 02/28/19 04:55: Sodium 142, Potassium 3.9, BUN 32 H, Creatinine 1.04, Glucose 113 H, Magnesium 2.7 H, Total Bilirubin 0.4, AST 23, ALT 24, Alkaline Phosphatase 159 H Treatment Summary: Patient was admitted for presyncopal/lightheadedness episode. Due to her prior medical history, she was admitted. Cardiology was consulted. Carotid Doppler, echo, MRI/MRA was ordered. MRA of the neck showed moderate stenosis in the left vertebral artery, mild stenosis in the internal carotid arteries. The carotid ultrasound was negative for any hemodynamically significant stenosis. The brain MRI and MRA was negative for any acute abnormalities. Echocardiogram was normal with normal ejection fraction. Patient's symptoms resolved. She was then cleared for discharge by cardiology. For diagnosis and treatment plan were explained to her. All questions were answered and patient verbalized understanding. She was then discharged home in a safe and stable manner. She has an appointment scheduled with her primary care physician in 1 day already. 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 Return to the emergency room precautions were provided to patient. - Disposition Discharge Date: 02/28/19 Disposition: ROUTINE DISCHARGE Condition: GOOD Patient Discharge Instructions: Please follow up with your primary care physician in 2-3 days. Please follow up with the fibreglass gun hand as scheduled. Please return to the emergency room for worsening symptoms. Diet: AHA Activity: Ad vita
--- NOTE | 2019-02-28 19:44 | CON ---
Date of Consultation: 02/28/2019 History Of Present Illness: Ms. Jason is a 68-year-old. She was admitted on 02/28/[address] Michelle's service for syncope. I saw the patient on 02/28/2019. Ms. Jason is a 68-year-old woman who has had m ultiple issues from a cardiovascular standpoint. She has a history of hypertension, dyslipidemia, ga stroesophageal reflux disease, depression. Had a carotid endarterectomy about 4 months ago. About 6 months ago, she had a stent in her coronaries by Dr. Kwan. She came in with a syncopal episode w hile she was standing up for a while. She became diaphoretic and lost consciousness. She did not manzo ve any chest pain, nausea, vomiting, PND, orthopnea, pedal edema, or palpitation. Denied any fever o r chills. Denied any urinary incontinence. She denied any tongue biting. She was very alert and or iented when she came through. Her workup so far has been negative. Allergies: NONE. Review of Systems: Negative. Social History: Negative. Family History: Noncontributory. Medications: At home include aspirin, Wellbutrin, Cymbalta, losartan, Plavix, Lipitor, Coreg, and De xilant. Physical Examination: Vital Signs: Stable, afebrile. HEENT: Negative. Neck: Supple. No bruit. Chest: Clear. Cardiac: Reveals regular rhythm and rate. No murmurs, gallops, or rubs. Abdomen: Benign. Extremities: Reveal no clubbing, cyanosis, or edema. Laboratory Data And Imaging: Her workup including blood work revealed a hemoglobin of 10.1. Otherwi se was unremarkable. She had a normal echocardiogram. EKG showed right axis deviation. Otherwise w as normal. Her chest x-ray was negative. CT of her head and MRI of her brain were negative. MRA of the neck ar teries was negative. Carotid Doppler showed minimal plaquing. Impression And Plan: 1.Syncope, most likely secondary to orthostatic hypotension. I doubt that she had any arrhythmia. She definitely did not seem to have a seizure based on her symptoms. This is probably the result of dehydration, overheating, and a combination of her blood pressure medications along with Cymbalta and Wellbutrin. I am comfortable with her going home, and she will see Dr. Kwan in April as she plans. 2.Her other problems including hypertension, dyslipidemia, depression, and gastroesophageal reflux d isease seem to be stable. She had a coronary stent 6 months ago, and she may be able to stop the Alize vix soon. She had a carotid endarterectomy 4 months ago. Her carotid Doppler shows patent carotids. I am sure this will be followed up by Dr. Kwan in the near future. JAY/SONJA Voice ID: [id number] Report ID: [id number]
[2019-02-28] MEDS ORDERED: ATORVASTATIN 40 MG TAB PO SCH (21:00)
== END 2019-02-28 19:17 | disposition home or self-care (01) ==
LOC: ER 04:46 → ERHOLD 07:19 → 4TH 08:32
PROVIDERS: ADMIT Hospitalist; ATTEND Hospitalist
DX: R55 Syncope and collapse (principal); I25.10 Atherosclerotic heart disease of native coronary artery without angina pectoris; Z95.5 Presence of coronary angioplasty implant and graft; I10 Essential (primary) hypertension; E78.5 Hyperlipidemia, unspecified; K21.9 Gastro-esophageal reflux disease without esophagitis
CPT/HCPCS: 36415; 70450; 70544; 70549; 70553; 71045; 80048; 80061; 80076; 83735; 83880; 84484; 85025; 85610; 93005; 93306; 93880; 96360; 99285; A9577; G0378; J1650; J7030

== ENCOUNTER 2024-05-07 15:17 | Emergency (ER) | payer OTHER ==
[2024-05-07] MEDS ORDERED: NA CHLORIDE 0.9% 500 ML ONE ×2 (15:31→17:23)
[2024-05-07 15:51] LABS: PT Prothrombin Time 13.9 SECONDS (9.4-12.5); Protime INR 1.25
[2024-05-07 15:52] LABS: Absolute Lymphocytes (CBC) 2.2 K/uL (0.7-4.9); Absolute Monocytes 1.8 K/uL (0.1-1.3); Absolute Neutrophil 6.1 K/uL (1.8-8.0); Basophils % 0.5 % (0-1.3); Eosinophils % 0.5 % (0-4.4); Hematocrit 29.2 % (36.0-45.0); Hemoglobin 9.9 g/dL (12.0-15.0); Lymphocytes % 21.6 % (15.3-44.8); MCH 30.3 pg (27.0-35.0); MCHC 33.9 g/dL (32.0-36.0); MCV 89.3 fL (80-100); MPV 9.3 fL (7.6-11.3); Monocytes % 17.8 % (3.3-12.3); Neutrophils % 59.6 % (41.7-73.7); Platelets 212 thou/uL (152-406); RBC Red Blood Cell Count 3.27 M/uL (3.86-4.86); Red Cell Distribution Width 21.5 % (12.1-15.2)
[2024-05-07 16:08] LABS: Albumin 3.5 g/dL (3.4-5.0); Albumin/Globulin Ratio 1.1 (1.1-1.8); Anion Gap 12.3 mEq/L (5.0-15.0); Bilirubin Direct 0.2 mg/dL (0-0.2); Bilirubin Indirect, Calculated 0.3 mg/dL (0.2-0.8); Bilirubin Total 0.5 mg/dL (0.2-1.0); Globulin 3.1 g/dL (2.3-3.5); Potassium 4.3 mEq/L (3.5-5.1); Protein, Total 6.6 g/dL (6.4-8.2); Troponin High Sensitivity 8.2 pg/mL (<58.9)
[2024-05-07 16:12] LABS: SARS-CoV-2 Antigen CONTROL BLUE LINE VIS/BG OK; SARS-CoV-2 Antigen Rapid Res Negative (Negative)
[2024-05-07 16:35] LABS: Specific Gravity 1.025 (1.005-1.030); Sqamous Epithelial <5 /HPF (None Seen); Urine Bacteria <20 /HPF (<20); Urine Bilirubin NEGATIVE (Negative); Urine Blood Negative (Negative); Urine Clarity Turbid (Clear); Urine Color Yellow (Yellow); Urine Culture Reflex Order NOT NEEDED; Urine Glucose NEGATIVE (Negative); Urine Ketones NEGATIVE (Negative); Urine Microscopic Reflex YN ORDER UMIC; Urine Mucus 1+ /HPF (None Seen); Urine Nitrite NEGATIVE (Negative); Urine Protein TRACE (Negative); Urine RBC <5 /HPF (None Seen); Urine Urobilinogen 1+ (Normal); Urine pH 5.5 (5.0-7.0)
--- NOTE | 2024-05-07 16:59 | RAD REPORT ---
EXAMINATION: ONE VIEW CHEST XR CLINICAL INDICATION: Female, 74 years old. [facility] MAIN syncope Bed Name: 5 TECHNIQUE: Frontal chest projection is submitted. Examination is limited by patient positioning and t echnique. COMPARISON: 02/28/2019 FINDINGS: The lungs are well inflated and clear. No pneumothorax or sizable effusion. The heart is normal in s ize. IMPRESSION: No acute intrathoracic abnormalities.
--- NOTE | 2024-05-07 17:12 | RAD REPORT ---
EXAM: Chest For Pe Angio TECHNIQUE: CT angiogram of the chest was performed following intravenous contrast administration, inc luding sagittal and coronal as well as maximum intensity projection reformats. Contrast dose: 90 mL of Isovue-370. One or more of the following dose reduction techniques were used: Automated exposure c ontrol, adjustment of the mA and kV according to patient size, and iterative reconstruction. Unless otherwise specified, incidental findings do not require dedicated imaging follow-up. INDICATION: [facility] MAIN syncope;Dyspnea Bed Name: 5 Y COMPARISON: Chest radiograph of the same day. FINDINGS: LINES/TUBES: None. PULMONARY ARTERIES: Main pulmonary arteries are normal in caliber. No filling defects within the pul monary arteries to suggest pulmonary embolus. LUNGS AND AIRWAYS: The lungs and central airways are normal without focal abnormality. PLEURA: No effusion or pneumothorax. HEART AND MEDIASTINUM: The visualized thyroid gland is normal. Moderate predominantly noncalcified at herosclerotic plaque formation along the aortic arch inferior wall, with a crescentic flap of an ulcerated plaque, see axial image 83/117, and sagittal image 74/135. No significant luminal narrowing . Moderate irregular atherosclerotic, predominantly noncalcified, along the distal thoracic aorta with some areas of plaque ulceration. No mediastinal, hilar, or axillary lymphadenopathy. Heart is un remarkable. No pericardial effusion. Marked distention with fluid and food material of the esophagus, particularly the distal esophagus. SOFT TISSUES AND BONES: No acute osseous abnormality. No significant soft tissue finding. UPPER ABDOMEN: Unremarkable. IMPRESSION: No evidence of acute central pulmonary emboli. Atherosclerotic changes with ulcerated atherosclerotic plaque along the aortic arch and distal descen ding thoracic aorta, including a small crescentic flap along the aortic arch inferior wall. Marked fluid distention of the esophagus, especially the distal esophagus.
--- NOTE | 2024-05-07 17:24 | RAD REPORT ---
EXAM: Head Brain Wo Cont HISTORY: SYNCOPE COMPARISON: 02/28/2019 TECHNIQUE: Multiple contiguous axial images were obtained for a CT of the brain without contrast. Sag ittal and coronal reformats were performed. One or more of the following dose reduction techniques were used: Automated exposure control, adjus tment of the mA and kV according to patient size, and iterative reconstruction. Unless otherwise specified, incidental findings do not require dedicated imaging follow-up. FINDINGS: No evidence of hydrocephalus, intracranial hemorrhage, or extra-axial fluid collection. The brain is normal in morphology. The calvarium is intact. The visualized paranasal sinuses and mastoid air cells are essentially clear . IMPRESSION: No evidence of acute intracranial abnormality.
--- NOTE | 2024-05-07 18:14 | ER ---
Nurse's Notes [facility] Name: Alejandrina Jason Age: 74 yrs Sex: Female : 1950 Arrival Date: 05/07/2024 Time: 15:17 Bed 5 Private MD: Diagnosis: Syncope Presentation: 05/07 15:24 Chief complaint: pt found down on the ground by coworker. pt reports she had sudden kc6 onset dizziness and thinks she passed out. pt states she's been feeling bad since after her flu shot. denies cp, sob, n/v/d. (+) LOC, (-) blood thinners. Coronavirus screen: At this time, the client does not indicate any symptoms associated with coronavirus-19. Ebola Screen: No symptoms or risks identified at this time. Initial Sepsis Screen: Does the patient meet any 2 criteria? No. Patient's initial sepsis screen is negative. Does the patient have a suspected source of infection? No. Patient's initial sepsis screen is negative. Risk Assessment: Do you want to hurt yourself or someone else? Patient reports no desire to harm self or others. Onset of symptoms was May 07, 2024. 15:24 Method Of Arrival: Wheelchair kc6 15:24 Acuity: DON 2 kc6 Triage Assessment: 15:27 General: Appears in no apparent distress. comfortable, well groomed, well developed, kc6 Behavior is calm, cooperative, appropriate for age. Pain: Denies pain. EENT: No signs and/or symptoms were reported regarding the EENT system. Neuro: Level of Consciousness is awake, alert, obeys commands, Oriented to person, place, time, situation, Appropriate for age Reports dizziness, a syncopal episode weakness. Cardiovascular: Denies chest pain, shortness of breath, Capillary refill < 3 seconds. Respiratory: Airway is patent Trachea midline Respiratory effort is even, unlabored, Respiratory pattern is regular, symmetrical. GI: No signs and/or symptoms were reported involving the gastrointestinal system. Patient currently denies abdominal pain, diarrhea, nausea, vomiting. : No signs and/or symptoms were reported regarding the genitourinary system. Derm: No signs and/or symptoms reported regarding the dermatologic system. Skin is intact, is healthy with good turgor, Skin is clammy, diaphoretic, Skin is normal, Skin temperature is warm. Musculoskeletal: No signs and/or symptoms reported regarding the musculoskeletal system. Circulation, motion, and sensation intact. Capillary refill < 3 seconds, Range of motion: intact in all extremities. Historical: - Allergies: 15:27 No Known Allergies; kc6 - PMHx: 15:27 Hypertension; Myocardial infarction; kc6 - PSHx: 15:27 Stented artery; kc6 - Immunization history:: Adult Immunizations up to date. - Infectious Disease History:: Denies. - Social history:: Smoking status: Patient denies any tobacco usage or history of. - Family history:: not pertinent. - Hospitalizations: : No recent hospitalization is reported. Screenin:29 [facility] ED Fall Risk Assessment (Adult) History of falling in the last 3 months, kc6 including since admission Yes- physiologic fall (2 pts) Confusion or Disorientation No (0 pts) Intoxicated or Sedated No (0 pts) Impaired Gait No (0 pts) Mobility Assist Device Used No (0 pt) Altered Elimination No (0 pt) Score/Fall Risk Level 0 - 2 = Low Risk Oriented to surroundings. Abuse screen: Denies threats or abuse. Denies injuries from another. Nutritional screening: No deficits noted. Tuberculosis screening: No symptoms or risk factors identified. Assessment: 15:29 Reassessment: please see triage. kc6 16:15 Reassessment: Patient appears in no apparent distress at this time. No changes from kc6 previously documented assessment. Patient and/or family updated on plan of care and expected duration. Pain level reassessed. Patient is alert, oriented x 3, equal unlabored respirations, skin warm/dry/pink. Patient states feeling better. Patient states symptoms have improved. 17:17 Reassessment: Patient appears in no apparent distress at this time. No changes from kc6 previously documented assessment. Patient and/or family updated on plan of care and expected duration. Pain level reassessed. Patient is alert, oriented x 3, equal unlabored respirations, skin warm/dry/pink. 18:06 Reassessment: Patient appears in no apparent distress at this time. No changes from kc6 previously documented assessment. Patient and/or family updated on plan of care and expected duration. Pain level reassessed. Patient is alert, oriented x 3, equal unlabored respirations, skin warm/dry/pink. Vital Signs: 15:24 BP 113 / 63; Pulse 81; Resp 16 S; Temp 97.9(TE); Pulse Ox 100% on R/A; Weight 54.43 kg kc6 (R); Height 4 ft. 11 in. (R); Pain 0/10; 16:19 BP 112 / 56; Pulse 69; Resp 16 S; Pulse Ox 100% on R/A; kc6 17:17 BP 135 / 65; Pulse 74; Resp 17 S; Pulse Ox 100% on R/A; kc6 18:06 BP 156 / 62; Pulse 68; Resp 19 S; Pulse Ox 100% on R/A; Pain 0/10; kc6 15:24 Body Mass Index 24.24 (54.43 kg, 149.86 cm) kc6 15:24 Pain Scale: Adult kc6 18:06 Pain Scale: Adult kc6 ED Course: 15:17 Patient arrived in ED. rn 15:18 Brando Leon MD is Attending Physician. rn 15:23 Marissa Bhatia RN is Primary Nurse. [facility] [facility] 15:[address] [facility] 15:27 Arm band placed on. EKG completed in triage. Results shown to MD. [facility] 15:29 Patient has correct armband on for positive identification. Placed in gown. Bed in low kc6 position. Call light in reach. Side rails up X2. head of english on. Pulse ox on. NIBP on. Door closed. Noise minimized. Lights dimmed. Pillow given. 15:29 Inserted saline lock: 18 gauge in right antecubital area, using aseptic technique. 6 Blood collected. Flushed with 10 mL NS. Patient maintains SpO2 saturation greater than 95% on room air. 15:32 EKG done, by ED staff, reviewed by Brando Leon MD COVID swab sent to lab. Flu and/or me1 RSV swab sent to lab. Strep swab sent to lab. 15:33 Strep Sent. me1 15:33 SARS-COV-2 Antigen Rapid Sent. me1 15:33 Flu Sent. me1 15:33 Basic Metabolic Panel Sent. me1 15:33 CBC with Diff Sent. me1 15:33 LFT's Sent. me1 15:33 NT PRO-BNP Sent. me1 15:33 PT-INR Sent. me1 15:33 Troponin HS Sent. me1 16:14 XRAY Chest (1 view) In Process Unspecified. EDMS 16:14 Urinalysis w/ reflexes Sent. kc6 16:34 CT Head Brain wo Cont In Process Unspecified. EDMS 16:39 CT Chest For PE Angio In Process Unspecified. EDMS 18:13 Mukesh Kwan MD is Referral Physician. rn 18:26 Provided Education on: f/u with PCP and transportation broker. kc6 18:26 No provider procedures requiring assistance completed. IV discontinued, intact, kc6 bleeding controlled, No redness/swelling at site. Pressure dressing applied. Administered Medications: 15:33 Drug: NS 0.9% IV 500 ml IV at bolus once Route: IV; Rate: bolus; Site: right kc6 antecubital; 16:14 Follow up: Response: No adverse reaction; IV Status: Completed infusion; IV Intake: kc6 500ml 17:25 Drug: NS 0.9% IV 500 ml IV at bolus once Route: IV; Rate: bolus; Site: right kc6 antecubital; 18:06 Follow up: Response: No adverse reaction; IV Status: Completed infusion; IV Intake: kc6 500ml Medication: 18:26 VIS not applicable for this client. kc6 Intake: 16:14 IV: 500ml; Total: 500ml. kc6 18:06 IV: 500ml; Total: 1000ml. kc6 Outcome: 18:13 Discharge ordered by . rn 18:26 Discharged to home ambulatory, with family, kc6 18:26 Condition: improved 18:26 Discharge instructions given to patient, family, Instructed on discharge instructions, follow up and referral plans. Demonstrated understanding of instructions, follow-up care, 18:26 Patient left the ED. kc6 Signatures: Dispatcher [employer] EDMS Brando Leon MD MD rn Campbell, Kaitlyn, RN RN kc6 Mila Tejada RN RN me1 Corrections: (The following items were deleted from the chart) 15:34 15:24 Chief complaint: pt found down on the ground by coworker. pt reports she had kc6 sudden onset dizziness and thinks she passed out. pt states she's been feeling bad since after her flu shot. denies cp, sob, n/v/d kc6 15:34 15:24 BP 113 / 63; Pulse 81bpm; Resp 16bpm; Spontaneous; Pulse Ox 100% RA; Temp 97.9F kc6 Temporal; Pain 0/10, Adult; kc6
--- NOTE | 2024-05-07 18:14 | EDPHYS ---
Physician Documentation [facility] Name: Alejandrina Jason Age: 74 yrs Sex: Female : 1950 Arrival Date: 05/07/2024 Time: 15:17 Bed 5 Private MD: ED Physician Brando Leon HPI: 05/07 15:39 This 74 yrs old Female presents to ER via Wheelchair with complaints of rn Syncope. 15:39 The patient has experienced syncope. Onset: The symptoms/episode began/occurred just rn prior to arrival. Associated signs and symptoms: Pertinent positives: dizziness, lightheadedness, shortness of breath. Current symptoms: Diaphoresis and dizziness. The patient has not experienced similar symptoms in the past. Patient reports not feeling well for the last few days, started around the time she got a flu shot, reports cough and malaise. No fever or chills. Has been working today and not feeling well and found on the ground after syncopal episode. No traumatic injuries. Patient reports starting to feel little bit better but diaphoretic and reports mild shortness of breath. Has been taking cough medication recently. Denies chest pain. No abdominal pain.. Historical: - Allergies: 15:27 No Known Allergies; kc6 - PMHx: 15:27 Hypertension; Myocardial infarction; kc6 - PSHx: 15:27 Stented artery; kc6 - Immunization history:: Adult Immunizations up to date. - Infectious Disease History:: Denies. - Social history:: Smoking status: Patient denies any tobacco usage or history of. - Family history:: not pertinent. - Hospitalizations: : No recent hospitalization is reported. ROS: 15:39 Constitutional: Negative for fever, chills, and weight loss, positive for diaphoresis rn Neck: Negative for injury, pain, and swelling, Cardiovascular: Negative for chest pain, palpitations, and edema, Respiratory: Positive for cough and shortness of breath Abdomen/GI: Negative for abdominal pain, nausea, vomiting, diarrhea, and constipation, Back: Negative for injury and pain, : Negative for injury, bleeding, discharge, and swelling, MS/Extremity: Negative for injury and deformity, Skin: Negative for injury, rash, and discoloration, Neuro: Positive for malaise and generalized weakness, negative for focal neurological deficit. Exam: 15:39 Constitutional: This is a well developed, well nourished patient who is awake, alert, rn diaphoretic Head/Face: Normocephalic, atraumatic. ENT: Dry mucous membranes, no stridor Cardiovascular: Regular rate and rhythm. No pulse deficits. Respiratory: No increased work of breathing, no retractions or nasal flaring. Abdomen/GI: Soft, non-tender MS/ Extremity: Pulses equal, no cyanosis. Neurovascular intact. Full, normal range of motion. Equal circumference. Neuro: Awake and alert, GCS 15, oriented to person, place, time, and situation. Cranial nerves II-XII grossly intact. Motor strength 5/5 in all extremities. Sensory grossly intact. Cerebellar exam normal. 15:42 ECG was reviewed by the Attending Physician. rn Vital Signs: 15:24 BP 113 / 63; Pulse 81; Resp 16 S; Temp 97.9(TE); Pulse Ox 100% on R/A; Weight 54.43 kg kc6 (R); Height 4 ft. 11 in. (R); Pain 0/10; 16:19 BP 112 / 56; Pulse 69; Resp 16 S; Pulse Ox 100% on R/A; kc6 17:17 BP 135 / 65; Pulse 74; Resp 17 S; Pulse Ox 100% on R/A; kc6 18:06 BP 156 / 62; Pulse 68; Resp 19 S; Pulse Ox 100% on R/A; Pain 0/10; kc6 15:24 Body Mass Index 24.24 (54.43 kg, 149.86 cm) [facility] 15:24 Pain Scale: Adult kc6 18:06 Pain Scale: Adult kc6 MDM: 15:18 Patient medically screened. rn 18:09 Differential Diagnosis: cardiac arrhythmia, emotional response, idiopathic syncope, rn vasovagal episode, Dehydration, pneumonia, cough syncope, pulmonary embolism. Data reviewed: vital signs, nurses notes, lab test result(s), EKG, radiologic studies, CT scan, plain films. Consideration of Admission/Observation Escalation of care including admission/observation considered. Admission considered given syncopal episode but after discussion with family and patient they would like to go home, understand risk of going home without admission or further observation. Discussed findings of atherosclerotic plaques and ulcerations in aorta but no findings of dissection or aneurysm. No evidence of pulmonary embolism. Results printed and patient plans on going to Dr. Kwan's office tomorrow with results for further instructions and evaluation. Just had negative stress test 3 to 6 months ago and still denies chest pain. Patient states completely back to normal, asymptomatic, 100% oxygen, and only intervention was IV fluids. Patient states she felt like she was dehydrated and overdid it. Had a recent trip with family to [place].. Counseling: I had a detailed discussion with the patient and/or guardian regarding the historical points, exam findings, and any diagnostic results supporting the discharge/admit diagnosis, lab results, radiology results, the need for outpatient follow up. Response to treatment: the patient's symptoms have markedly improved after treatment. 18:14 ED course: Also discussed incidental finding of dilated esophagus with fluid-filled rn products. Patient denies any dysphagia to solids or liquids. Recommend GI follow-up.. 05/07 15:19 Order name: Basic Metabolic Panel; Complete Time: 17: 05/07 15:19 Order name: CBC with Diff 05/07 15:19 Order name: LFT's; Complete Time: : 05/07 15:19 Order name: NT PRO-BNP; Complete Time: :05/07 15:19 Order name: PT-INR; Complete Time: :05/07 15:19 Order name: Troponin HS; Complete Time: :05/07 15:19 Order name: Flu; Complete Time: :05/07 15:19 Order name: SARS-COV-2 Antigen Rapid; Complete Time: : 05/07 15:19 Order name: Strep; Complete Time: 17:05/07 15:19 Order name: Urinalysis w/ reflexes; Complete Time: :05/07 16:15 Order name: Throat Culture EDMN 05/07 15:19 Order name: XRAY Chest (1 view); Complete Time: 17:05/07 15:19 Order name: CT Head Brain wo Cont; Complete Time: :05/07 15:39 Order name: CT Chest For PE Angio; Complete Time: :05/07 15:19 Order name: Cardiac monitoring; Complete Time: 15:05/07 15:19 Order name: EKG - Nurse/Tech; Complete Time: 15:05/07 15:19 Order name: IV Saline Lock; Complete Time: 15:30 rn 05/07 15:19 Order name: Labs collected and sent; Complete Time: 15:30 rn 05/07 15:19 Order name: O2 Per Protocol; Complete Time: 15:30 rn 05/07 15:19 Order name: O2 Sat Monitoring; Complete Time: 15:30 rn EC:42 Rate is 78 beats/min. Rhythm is regular. Left axis deviation noted. QRS is positive in rn lead I and negative in lead aVF. QRS interval is normal. QT interval is normal. No Q waves. T waves are Normal. No ST changes noted. Clinical impression: NSR w/ Non-specific ST/T Changes. Interpreted by me. Reviewed by me. Administered Medications: 15:33 Drug: NS 0.9% IV 500 ml IV at bolus once Route: IV; Rate: bolus; Site: right kc6 antecubital; 16:14 Follow up: Response: No adverse reaction; IV Status: Completed infusion; IV Intake: kc6 500ml 17:25 Drug: NS 0.9% IV 500 ml IV at bolus once Route: IV; Rate: bolus; Site: right kc6 antecubital; 18:06 Follow up: Response: No adverse reaction; IV Status: Completed infusion; IV Intake: kc6 500ml Disposition Summary: 05/07/24 18:13 Discharge Ordered Notes: Location: Home rn Problem: new rn Symptoms: have improved rn Condition: Stable rn Diagnosis - Syncope rn Followup: rn - With: Mukesh Kwan MD - When: Tomorrow - Reason: Recheck today's complaints, Re-evaluation by your physician Discharge Instructions: - Discharge Summary Sheet rn - Syncope rn Forms: - Medication Reconciliation Form rn - Antibiotic corporate development intern - Prescription Opioid Use rn - Patient Portal Instructions rn - Leadership Thank You Letter rn Signatures: Dispatcher [employer] EDMS Brando Leon MD MD rn Campbell, Kaitlyn, RN RN kc6 Corrections: (The following items were deleted from the chart) 15:20 15:20 BASIC METABOLIC PANEL+C.LAB.BRZ ordered. EDMS EDMS 15:20 15:20 CBC+H.LAB.BRZ ordered. EDMS EDMS 15:20 15:20 HEPATIC FUNCTION+C.LAB.BRZ ordered. EDMS EDMS 15:20 15:20 PROBNP+C.LAB.BRZ ordered. EDMS EDMS 15:20 15:20 PROTIME (+INR)+COAG.LAB.BRZ ordered. EDMS EDMS 15:20 15:20 Troponin High Sensitivity+C.LAB.BRZ ordered. EDMS EDMS 15:20 15:20 Influenza Screen (A \T\ B)+BA.LAB.BRZ ordered. EDMS EDMS 15:20 15:20 SARS-COV-2 Antigen Rapid+I.LAB.BRZ ordered. EDMS EDMS 15:20 15:20 Group A Streptococcus Rapid Sc+BA.LAB.BRZ ordered. EDMS EDMS 15:20 15:20 Chest Single View+RAD.RAD.BRZ ordered. EDMS EDMS 15:20 15:20 Head Brain Wo Cont+CT.RAD.BRZ ordered. EDMS EDMS 15:20 15:20 Urinalysis+U.LAB.BRZ ordered. EDMS EDMS
[2024-05-07 18:55] VITALS: TEMP 97.9; O2SAT 100
[2024-05-07 18:59] VITALS: BP 156/62
[2024-05-07 19:46] LABS: Anisocytosis 1+; Blood Morphology Comment NOTED (NOT SEEN); Platelet Estimate ADEQ; Poikilocytosis 1+; White Blood Cell Scan OK (OK)
--- NOTE | 2024-05-08 13:49 | EKG ---
Test Date: 2024-05-07 Test Time: 15:21:02 Cco & President: MEASUREMENT RESULTS: Intervals: Rate: 78 OR: 134 QRSD: 66 QT: 378 QTc: 430 [place]: P: 59 OR: 134 QRS: -41 T: 85 INTERPRETIVE STATEMENTS: Normal sinus rhythm Left axis deviation Abnormal ECG Compared to ECG 02/28/2019 04:52:22 Left-axis deviation now present Right-axis deviation no longer present T-wave abnormality no longer present Electronically Signed On 05-08-24 13:08:26 CDT by Fuentes Wong
== END 2024-05-07 18:26 | disposition home or self-care (01) ==
LOC: ER 15:17
DX: R55 Syncope and collapse (principal); R53.81 Other malaise; R53.1 Weakness; R06.02 Shortness of breath; Z11.52 Encounter for screening for COVID-19; I10 Essential (primary) hypertension; I25.2 Old myocardial infarction
CPT/HCPCS: 87070; 85025; 81001; 80048; 36415; 85610; 80076; 87081; 84484; 83880; 87804 ×2; 70450; 71275; 71045; 87811; Q9967; J7040 ×2; 82947; 93005; 96360; 99285